=== PATIENT | female | born 1950 | race Caucasian/White ===

== ENCOUNTER → 2020-03-05 | Outpatient (CLI) | payer OTHER ==
[~2020-03-05] MED LIST: BIOTIN1000 MCG PO; HYDRALAZINE 10M10 MG PO; IPRAT-ALBUT 0.5-3 ML INH; LIVALO4 MG PO; METOPROLOL TAR100 MG PO; OMEPRAZOLE 20 M20 M1 PO; PROZAC20 M1 PO; SINGULAIR 10 MG10 MG PO; TRIAMTERENE/HCT1 CA1 PO; VITAMIN D21250 MCG PO
== END ==
LOC: SJCVCIMAG 12:32
PROVIDERS: ATTEND Internal Medicine Cardiovascular Disease
DX: I08.8 Other rheumatic multiple valve diseases (principal); I10 Essential (primary) hypertension; E78.00 Pure hypercholesterolemia, unspecified; R53.83 Other fatigue; R68.89 Other general symptoms and signs; I27.20 Pulmonary hypertension, unspecified; J45.909 Unspecified asthma, uncomplicated; Z98.890 Other specified postprocedural states; Z88.8 Allergy status to other drugs, medicaments and biological substances; Z79.899 Other long term (current) drug therapy; Z82.49 Family history of ischemic heart disease and other diseases of the circulatory system

== ENCOUNTER → 2020-03-06 | Outpatient (CLI) | payer OTHER ==
[~2020-03-06] VITALS: Ht 160 cm; Wt 86.4 kg
[2020-03-06 07:54] VITALS: BP 157/71
[2020-03-06 08:04] LABS: HEMOGLOBIN 13.6 gm/dL (12.0-15.0); MCH 31.8 pg (26.0-34.0); MCHC 34.8 g/dL (28.0-37.0); MCV 91.4 fL (80.0-100.0); RBC 4.27 mil/uL (4.20-5.00); RDW 12.4 % (10.5-14.5); WBC 6.5 thou/uL (4.0-11.0)
[2020-03-06 08:21] LABS: CALCIUM 9.6 mg/dL (8.5-10.1); CREATININE 0.7 mg/dL (0.6-1.0); POTASSIUM 4.4 mmol/L (3.5-5.1)
--- NOTE | 2020-03-07 09:55 | CATHLAB ---
[facility] [place] [address] INVASIVE PROCEDURE REPORT Name: MISTI VARGAS Room #: REG ANA Frey.#: [id number] Admission: 03/06/20 Attend Phys: Florentino Zarate MD, Discharge: Date of : 50 Report #: [id number] THIS REPORT FOR: cc: SOFI MIRELES FAMILY PHYSICIAN or PCP Florentino Zarate MD [facility] ~ APPROVED REPORT Study performed: 03/06/2020 07:28:17 Patient Details The patient is a 69 year-old female Event Personnel Florentino Zarate Material Stress Tester, Juan Hernandez RN RN, Leeanne Dougherty Roberta Scrub Procedures Performed Art Access - R femoral artery* Chas Access - R femoral vein Right and Left Heart Cath w/or w/o Coronarie [id number] [facility] Aortogram Abdominal Peripheral Angio 232169 Hemostasis w/ Mynx 12825 Initial Mod Sed Same Phys/QHP Gr 492500 67996 Mod Sed Same Phys/QHP Ea [id number] Indication Chest pain Procedure Narrative The Right Groin^ was infiltrated with 1% Lidocaine subcutaneous anesthesia. A PINNACLE 6FR Sheath #[id number] sheath was inserted into the RFA. Coronary angiography was performed using coronary diagnostic catheters. The right coronary system was accessed and visualized with a JR4 catheter. The left coronary system was accessed and visualized with a JL4 catheter. The left ventricle was accessed and visualized with a STR PIG catheter. The patient tolerated the procedure well and there were no complications associated with the procedure. There was no hematoma. HELD TASIA PRESSURE FOR THE 7F VENOUS SHEATH. Intraoperative Conscious Sedation Sedation start time: 842 Case end Time: 919 Fentanyl mcg Versed mg [facility] [address] [place] [address] INVASIVE PROCEDURE REPORT Name: MISTI VARGAS Room #: [facility]#: [id number] Admission: 03/06/20 Attend Phys: Florentino Zarate, Discharge: Date of : 50 Report #: [id number] Fluoro Time: 1.90 minutes Dose: DAP 3222.00 cGycm2 362 mGy Contrast Type and Amount: Omnipaque 95 ml Hemodynamics The right atrial mean pressure is 14 mmHg. The right ventricular pressure is 58/5 mmHg. The pulmonary artery pressure is 49/14 mmHg with a mean of 25 mmHg. The mean pulmonary capillary wedge pressure is 20 mmHg. The aortic pressure is 138/75 mmHg with a mean of 97 mmHg. The left ventricular pressure is 144/10 mmHg with a mean of mmHg. The left ventricular end diastolic pressure is 23 mmHg. The cardiac output using thermo method is 4.70 L/min. The cardiac index using thermo method is 2.48 L/min/m2. Conclusion #1. Successful right heart catheterization with cardiac output by thermodilution. See above hemodynamics. #2 normal left jugular size and systolic function EF 60%. #3 abdominal aorta is mild tortuosity no aneurysm single bilateral renal arteries widely patent. #4 normal three-vessel coronary anatomy in a right dominant system. No occlusive disease. Recommendations and plan: Moderate pulmonary pressure elevation moderate wedge pressure elevation. Have initiated 10 mg of Demadex on a daily basis. Will follow up with Dr. Mireles consider pulmonary evaluation. <ELECTRONICALLY SIGNED> By: Florentino Zarate MD, FACC 03/07/20954 4 4 Florentino Zarate MD, FACC /INF
== END | disposition home or self-care (01) ==
LOC: CATH 06:22
PROVIDERS: ATTEND Internal Medicine Cardiovascular Disease
DX: R07.9 Chest pain, unspecified (principal); R06.00 Dyspnea, unspecified; I10 Essential (primary) hypertension; J45.909 Unspecified asthma, uncomplicated; E78.00 Pure hypercholesterolemia, unspecified; Z98.890 Other specified postprocedural states; Z79.899 Other long term (current) drug therapy; Z88.0 Allergy status to penicillin

== ENCOUNTER → 2020-04-17 | Outpatient (CLI) | payer OTHER | LOC: SJCVC 16:30 | PROVIDERS: ATTEND Internal Medicine Cardiovascular Disease | DX: I10 Essential (primary) hypertension (principal); E80.0 Hereditary erythropoietic porphyria; E78.00 Pure hypercholesterolemia, unspecified; I27.20 Pulmonary hypertension, unspecified; J45.909 Unspecified asthma, uncomplicated; Z98.890 Other specified postprocedural states; Z88.0 Allergy status to penicillin; Z88.8 Allergy status to other drugs, medicaments and biological substances; Z79.899 Other long term (current) drug therapy; Z82.49 Family history of ischemic heart disease and other diseases of the circulatory system ==